=== PATIENT | female | born 1950 ===

== ENCOUNTER → 2017-05-17 | Emergency (ER) | payer OTHER ==
[~2017-05-17] VITALS: Ht 157.5 cm; Wt 68.0 kg
== END | disposition home or self-care (01) ==
LOC: ER 11:33
DX: B34.9 Viral infection, unspecified (principal); J11.1 Influenza due to unidentified influenza virus with other respiratory manifestations

== ENCOUNTER 2022-02-06 19:33 | Emergency (ER) | payer OTHER ==
[~2022-02-06] VITALS: Ht 154.9 cm; Wt 62.6 kg
== END 2022-02-06 23:47 | disposition home or self-care (01) ==
LOC: ER 19:33
DX: R10.9 Unspecified abdominal pain (principal); R30.0 Dysuria; R31.9 Hematuria, unspecified; N20.1 Calculus of ureter; K57.30 Diverticulosis of large intestine without perforation or abscess without bleeding

== ENCOUNTER 2022-03-11 09:18 | Outpatient (CLI) | payer OTHER | END 2022-03-11 09:22 | disposition home or self-care (01) | LOC: RAD 09:18 | PROVIDERS: ATTEND Urology | DX: N20.1 Calculus of ureter (principal) ==